=== PATIENT | male | born 1980 | race Caucasian/White ===

== ENCOUNTER 2019-10-19 04:54 | Observation (INO) ==
[2019-10-15 11:45] LABS: Basophils # 0.1 10*3/uL (0.0-0.2); Basophils % 0.8 % (0.0-0.8); Eosinophils # 0.4 10*3/uL (0.0-0.87); Eosinophils % 4.7 % (0.00-10.9); Hematocrit 43.6 VOL% (42.0-52.0); Hemoglobin 14.5 GM/DL (14.0-18.0); Immature Granulocytes % 0.4 %; Immature Granulocytes Absolute 0.03 #; Lymphocytes # 2.5 10*3/uL (1.4-4.0); Lymphocytes % 33.1 % (21.2-54.2); Mean Corpuscular HGB Conc 33.3 GM/DL (32-36); Mean Corpuscular Volume 91.2 FL (87-102); Mean Platelet Volume 9.1 FL (9.6-12.0); Monocytes % 9.5 % (1.7-12.7); Neutrophils % 51.5 % (38.7-73.9); Platelet Count 257 T/CUMM (130-400); Red Blood Count 4.78 MC/CUMM (3.8-5.5); Red Cell Distribution Width 12.9 % (9.3-17.3); White Blood Count 7.5 T/CUMM (4-12)
[2019-10-15 12:10] LABS: Calcium 8.8 MG/DL (8.5-10.1); Osmolality,Calculated 275.5 MOS/KG (273-304)
[2019-10-19] MEDS ORDERED: HYDROmorphone 2 MG/1 ML VIAL IV STA (05:24)
[2019-10-19] MEDS ORDERED: ONDANSETRON 4 MG/2 ML VIAL IV STA (05:24)
[2019-10-19] MEDS ORDERED: LIDOCAINE 2% 5 ML VIAL ONE ×2 (06:11→09:04)
[2019-10-19] MEDS ORDERED: fentaNYL 100 MCG/2 ML VIAL ONE ×2 (06:11→09:04)
[2019-10-19] MEDS ORDERED: ROPIVACAINE 0.5% 30 ML VIAL ONE (06:11)
[2019-10-19] MEDS ORDERED: MIDAZOLAM 2 MG/2 ML VIAL ONE ×2 (06:11→06:36)
[2019-10-19] MEDS ORDERED: DEXAMETHASONE 4 MG/1 ML VIAL ONE ×2 (06:12→09:04)
[2019-10-19] MEDS ORDERED: SCOPOLAMINE 1.5 MG PATCH TRANSDERM ONE (06:12)
[2019-10-19] MEDS ORDERED: TISSUE ADHESIVE 1 EACH APPLICATOR TOP ONE (06:13)
[2019-10-19] MEDS ORDERED: DIAZEPAM 5 MG TABLET PO ONE (06:17)
[2019-10-19] MEDS ORDERED: FAMOTIDINE 20 MG TABLET PO ONE (06:17)
[2019-10-19] MEDS ORDERED: ACETAMINOPHEN 500 MG TABLET PO ONE (06:17)
[2019-10-19] MEDS ORDERED: GABAPENTIN 400 MG CAPSULE PO ONE (06:17)
[2019-10-19] MEDS ORDERED: ACETAMINOPHEN 500 MG TABLET ONE (06:28)
[2019-10-19] MEDS ORDERED: GABAPENTIN 400 MG CAPSULE ONE (06:28)
[2019-10-19] MEDS ORDERED: FAMOTIDINE 20 MG TABLET ONE (06:29)
[2019-10-19] MEDS ORDERED: LACTATED RINGERS 1,000 ML IV SCH ×2 (06:30)
[2019-10-19] MEDS ORDERED: ceFAZolin 2,000 MG in PREMIX 1 EACH IV ONE (06:30)
[2019-10-19] MEDS ORDERED: propofoL 200 MG/20 ML VIAL IV ONE (09:04)
[2019-10-19] MEDS ORDERED: SEVOFLURANE 1 UNIT/15 MINUTE INH ONE (09:04)
[2019-10-19] MEDS ORDERED: ONDANSETRON 4 MG/2 ML VIAL ONE (09:04)
[2019-10-19] MEDS ORDERED: KETOROLAC 30 MG/1 ML VIAL ONE (09:04)
[2019-10-19] MEDS ORDERED: NEOSTIGMINE 10 MG/10 ML VIAL ONE (09:05)
[2019-10-19] MEDS ORDERED: GLYCOPYRROLATE 0.4 MG/2 ML VIAL ONE (09:05)
[2019-10-19] MEDS ORDERED: ROCURONIUM 100 MG/10 ML VIAL IV ONE (09:05)
[2019-10-19] MEDS ORDERED: LACTATED RINGERS 1,000 ML IV ONE (09:05)
[2019-10-19 11:20] VITALS: BP 103/58
== END 2019-10-19 11:15 | disposition home or self-care (01) ==
LOC: N.EDINP 04:54 → N.ED 04:54 → N.SDSINP 05:40
PROVIDERS: ADMIT Surgery; ATTEND Surgery